=== PATIENT | female | born 1965 | race Caucasian/White ===

== ENCOUNTER 2025-02-01 10:50 | Outpatient (CLI) | payer BC, SELFPAY ==
--- OUTSIDE RECORDS SUMMARY | 2013-12-26 20:00 | XMS_ITS | Continuity of Care Document ---
Author Organization [facility] Address [address] [address] Phone Care Team Providers Care Maintenance Porter Name Role Phone Gypsy Laws OD Unavailable Unavailable Allergies, Adverse Reactions, Alerts Substance Reaction Status Criticality niacin Active No Information Medications Medication Instructions Dosage Effective Dates (start - stop) Status Comments VICTOZA 2-CHAUNCEY (unknown strength) inject 0.2 milliliter by subcutaneous route every day Not Available - Active LIPITOR (unknown strength) take 1 tablet by oral route every day Not Available - Active SYSTANE (unknown strength) Not Available - Active Procedures Procedure Date Determination Refractive State 14 Oph Medical Xm&Eval Compre New Pt 1/> Vst Contact Lens Evaluation Fee Level 1 Advance Directives Directive Yes / No Effective Date File Name No Information Encounters Encounter Description Practice Location Reason(s) For Visit Diagnoses Date Provider Providers Copied on Encounter [facility], [address] [place] [address], [id number], tel:[phone] [facility] No Information 4 Veto Betancur. [facility] [address], [place], [id number] , [place]. tel:[phone] Referring Provider: Gypsy Ferreira, [address] [place], [address] . tel:[phone] [facility], [address] [place] [address], [id number], tel:[phone] [facility] Routine Eye exam (chief complaint) PresbyopiaDiabe adan (high blood sugar disease)Blephar itis 4 Veto Betancur. [address], [place], [id number] , . tel:[phone] Referring Provider: Gypsy Ferreira, [address] [place], [address] . tel:[phone] Family History Family Member Type Diagnosis Age At Onset Problem (finding) Family history of catar act Problem (finding) Family history of Diabe adan mellitus Problem (finding) Family history of hyper tension Payers Payer name Insurance type Covered republican ID Authoriza tion(s) Vision Service Plan [facility] [id number] Social History Type Description Quantity Date Captured Comments Sex Female Smoking Status No Information Chief Complaint And Reason For Visit No Information Reason For Referral Reason For Referral No Information History Of Present Illness Encounter Date Complaint History Of Prese nt Illness Routine Eye exam 48 yo Female c/ o unable to wear cl's x 6mths due to irritation OU. Pt would like to be able to wear cl's more than gls. Pt feels DVA has slightly changed since last cee ( 1yr at [facility]). 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 Pt doesn't wear anything for NVA and sometimes feels that something can be used to help with that. OU irritated OU x 6 mths. Per pt has been told in the past that she has blepharitis OU. Pt is currently using PF AT's and lid scrubs OU as directed by previous doctor. Pt is diabetic and Last AIC 7.2 and per pt PCP is ok with that. Pt doens't ck lbs at home.PCP: Dr. Dayanara Gonsales Functional Status Date Functional Assessmen t No Information Instructions Date Instruction Additional Infor shaheen - Continue to use li d scrubs, WC's, AT's frequently. Monitor prn Related to Blepharitis - educ. pt on the im portance of BG control, taking meds regularly, & returning to PCP as scheduled. Monitor yearly Related to Diabetes (high blood sugar disease) - Rtc x 1 yr for dil ated exam with Dr. Laws Related to Diabetes (high blood sugar disease) - RX given with add to help with reading. PAL rec. Also sent to CL for updated CL's. Edcu. pt to use AT's frequently with CL's. Related to Presbyopia Assessments Type Assessment Date No Information Patient Care Teams Name Effective Dates (start - stop) Status Members No Information
--- NOTE | 2025-02-01 | CA_ITS ---
APPROVED REPORT Exam: Pharmacologic Technologist: Yanna Arnold Stress Nurse: Allison Rogers Ht: 5 ft 3 in Wt: 272 lbs BSA: 2.20 m2 HR: 62 bpm BP: 181/91 mmHg Stress Test Details Test: Lexiscan HR Resting HR: 62 bpm Max Heart Rate (APMHR): 162.104731 bpm Max HR Achieved: 83 bpm Target HR (85% APMHR): 137.128259 bpm % of APMHR: 51.23 Recovery HR: 67 bpm BP Resting BP: 181.0/91.0 mmHg Max BP: 181.0/91.0 mmHg Recovery BP: 168.0/78.0 mmHg ECG Resting ECG: Sinus rhythm Stress ECG Conclusion Lungs CTA prior to start of test. Symptoms: None Arrhythmias/Ectopy: None ST-T Changes: Less than 0.[address] segment changes. Conclusion: Nondiagnostic ECG/Lexiscan Electronically signed by : Shazia Somers MD 02/01/2025 18:10:45
--- NOTE | 2025-02-01 11:15 | CA_ITS ---
APPROVED REPORT EXAM: Comprehensive 2D, Doppler, and color-flow Echocardiogram And [employer] Instructor Bus Trolley: Yadi Rodriguez CRT Ht: 5 ft 3 in Wt: 272lbs BSA: 2.20 BP: 154/93 mmHg Indications: Abnormal ECG, Hypertension/HDD 2D Dimensions LA Volume 35.00 mL LA Volume Index 15.50 mL/m2 (M/F) 16-34 M-Mode Dimensions RVDd 2.66 cm (0.9-2.6) LA Diam 3.72 cm (1.9-4.0) LVDd 5.10 cm (3.5-5.7) LVDs 3.69 cm (3.5-5.7) IVSd 1.29 cm (0.6-1.1) PWd 1.08 cm (0.6-1.1) EF (Teich) 53.30% FS 27.60% EDV (Teich) 123.80 mL TAPSE 2.29 (<1.7) ESV (Teich) 57.80 mL LV Diastology E Decel Time 303 (160-240 msec) E/A Ratio 0.67 MED A' 9.70 cm/s LAT A' 12.30 cm/s Aortic Valve AO Peak GR. 7.10 mmHg Mitral Valve MV A Velocity 100.0 (40-130 cm/s) E/A Ratio 0.67 Pulmonary Valve PV Peak Velocity 118.0 (50-150 cm/s) Tricuspid Valve TR P. Velocity 207.00 cm/s RAP Estimate 10.00 mmHg RVSP 27.10 mmHg Left Ventricle The left ventricle is normal size. Left ventricular systolic function is normal. The left ventricular ejection fraction is within the normal range. There is normal left ventricular wall thickness. There is normal LV segmental wall motion. Transmitral Doppler flow pattern suggests impaired LV relaxation. LVEF is 55%. Right Ventricle The right ventricle is normal size. The right ventricular systolic function is normal. Atria The left atrium is mildly dilated. The right atrium is mildly dilated. There is no color Doppler evidence of interatrial shunt. Aortic Valve The aortic valve opens well. There is no hemodynamically significant aortic valvular stenosis. Trace aortic regurgitation is present. Mitral Valve The mitral valve is normal in structure. No evidence of mitral valve stenosis. Mild mitral regurgitation is present. Tricuspid Valve The tricuspid valve leaflets are thin and pliable. Mild tricuspid regurgitation. RVSP is 20-25 mmHg. Pulmonic Valve The pulmonary valve is grossly normal in structure. Trace pulmonic valve regurgitation is present. Great Vessels The aortic root is normal in size. IVC is normal in size and collapses >50% with inspiration. Pericardium There is no pericardial effusion. Other Information Study Quality: Fair Conclusion Normal biventricular systolic function. Mild biatrial dilation. Mild MR, mild TR. Electronically signed by : Shazia Somers MD 02/01/2025 12:36:44
--- NOTE | 2025-02-01 12:00 | NM_ITS ---
APPROVED REPORT Exam: Nuclear Stress Test Indication: palpitations..fatigue Patient Location: Outpatient Stress Tech: Yanna Arnold MD Tech:RIKY Ferreira RT(R)(N) Ht: 5 ft 3 in Wt: 270 lbs Bra Size: 46ddd HR: 62 bpm BP: 181/91 mmHg BSA: 2.20 m2 TID: 1.20 BMI: 47.8 History: palpitations..fatigue Procedure: Patient received 0.4 mg of intravenous Lexiscan, resting heart rate 62 bpm, resting blood pressure 181/91 mmHg, with Lexiscan maximum heart rate achieved was 83 bpm which is 85 % of the maximum predicted heart rate and blood pressure was 180/91 mmHg. With Lexiscan, patient denied any complaint of chest pain. Cardiac Stress and Resting SPECT Images: Cardiac Stress and Resting SPECT images were obtained using technetium 99m Myoview 31.9 mCi stress and 10.94 mCi at rest. Resting and stress imaging in supine and prone positions demonstrate no evidence of fixed or reversible perfusion defects. There is borderline increase in transient ischemic dilatation ratio (TID 1.20), which may be suggestive of possible multivessel disease or balanced ischemia. Gated imaging demonstrates normal global and regional LV systolic function. LVEF is calculated at 54%. Conclusion: No evidence of fixed or reversible perfusion defects. There is borderline increase in transient ischemic dilatation ratio (TID 1.20), which may be suggestive of possible multivessel disease or balanced ischemia. Gated imaging demonstrates normal global and regional LV systolic function. LVEF is calculated at 54%. Electronically signed by : Shazia Somers MD 02/01/2025 14:56:23
[2025-02-01] MEDS: SODIUM CHLORIDE 0.9% 10ML SYR (RAD ONLY) 10 ML IV ×2 (13:26)
[2025-02-01] MEDS: ISOTOPE MYOVIEW (PER STUDY) 1 DOSE IV (13:26)
[2025-02-01 13:30] VITALS: BP 181/91; PULSE 62; RESP 16
== END 2025-02-01 23:59 | disposition home or self-care (01) ==
LOC: RT 10:51
PROVIDERS: PCP Nurse Practitioner; Visit Provider Physician Assistant
DX: I08.1 Rheumatic disorders of both mitral and tricuspid valves (principal); I11.9 Hypertensive heart disease without heart failure; R94.39 Abnormal result of other cardiovascular function study; I47.10 Supraventricular tachycardia, unspecified; E78.5 Hyperlipidemia, unspecified; R94.31 Abnormal electrocardiogram [ECG] [EKG]
CPT/HCPCS: 78452; 93017; 93018; 93306; A9502; J2785